=== PATIENT | male | born 1960 ===

== ENCOUNTER 2019-02-10 14:55 | Emergency (ER) | payer SELFPAY | END 2019-02-10 16:13 | disposition home or self-care (01) | LOC: ERS 14:55 | DX: T14.8XXA Other injury of unspecified body region, initial encounter (principal); M25.551 Pain in right hip; I25.2 Old myocardial infarction; F17.210 Nicotine dependence, cigarettes, uncomplicated; Z95.5 Presence of coronary angioplasty implant and graft; W57.XXXA Bitten or stung by nonvenomous insect and other nonvenomous arthropods, initial encounter | CPT/HCPCS: 99283 ==